=== PATIENT | female | born 1995 | race African-American/Black ===

== ENCOUNTER 2017-09-25 | Emergency (ER) | payer OTHER ==
[~2017-09-25] VITALS: Ht 165.1 cm; Wt 56.7 kg
[2017-09-25 00:45] VITALS: BP 142/83
[2017-09-25 04:18] LABS: Urine Bacteria NONE SEEN /hpf (None Seen); Urine Blood 3+ /uL (Negative); Urine Specific Gravity 1.009 (1.001-1.035); Urine WBC 80 /hpf (0 - 5)
== END 2017-09-25 01:24 | disposition home or self-care (01) ==
LOC: EDBD → ER 00:08
DX: J45.909 Unspecified asthma, uncomplicated (principal); Z76.0 Encounter for issue of repeat prescription
CPT/HCPCS: 71045; 81001; 81025